=== PATIENT | female | born 1980 | race Caucasian/White ===

== ENCOUNTER 2021-02-13 12:56 | Emergency (ER) | payer OTHER, MEDICARE | END 2021-02-13 16:01 | disposition home or self-care (01) | LOC: FER 12:56 | DX: S13.4XXA Sprain of ligaments of cervical spine, initial encounter (principal); S23.3XXA Sprain of ligaments of thoracic spine, initial encounter; S33.5XXA Sprain of ligaments of lumbar spine, initial encounter; S43.402A Unspecified sprain of left shoulder joint, initial encounter; V49.40XA Driver injured in collision with unspecified motor vehicles in traffic accident, initial encounter; Y93.89 Activity, other specified | CPT/HCPCS: 72125; 72128; 72131; 73030; J1885 ==

== ENCOUNTER 2022-03-14 16:33 | Emergency (ER) | payer OTHER | END 2022-03-14 20:55 | disposition home or self-care (01) | LOC: FER 16:33 | DX: G43.909 Migraine, unspecified, not intractable, without status migrainosus (principal); F17.210 Nicotine dependence, cigarettes, uncomplicated; Z88.5 Allergy status to narcotic agent; Z28.310 Unvaccinated for COVID-19 | CPT/HCPCS: 70450; J1200; J1885; J2765 ==

== ENCOUNTER 2022-05-03 03:04 | Emergency (ER) | payer OTHER ==
[2022-05-03] MEDS ORDERED: NAPROXEN500 MG PO (03:52)
[2022-05-03] MEDS ORDERED: NORCO 5-325 TA1 EACH PO (03:52)
== END 2022-05-03 04:07 | disposition home or self-care (01) ==
LOC: FER 03:04
DX: T25.222A Burn of second degree of left foot, initial encounter (principal); F17.210 Nicotine dependence, cigarettes, uncomplicated; Z28.310 Unvaccinated for COVID-19; Z88.5 Allergy status to narcotic agent; X10.0XXA Contact with hot drinks, initial encounter; Y92.89 Other specified places as the place of occurrence of the external cause; Y99.0 Civilian activity done for income or pay
CPT/HCPCS: 99283

== ENCOUNTER 2022-05-13 02:10 | Emergency (ER) | payer OTHER ==
[~2022-05-13 02:10] MED LIST: NAPROXEN500 MG PO; NORCO 5-325 TA1 EACH PO
[2022-05-13] MEDS ORDERED: SILVADENE20 G1 TOP (03:54)
== END 2022-05-13 04:18 | disposition home or self-care (01) ==
LOC: FER 02:10
DX: T25.222D Burn of second degree of left foot, subsequent encounter (principal); F17.210 Nicotine dependence, cigarettes, uncomplicated; Z28.310 Unvaccinated for COVID-19; Z88.5 Allergy status to narcotic agent; X08.8XXD Exposure to other specified smoke, fire and flames, subsequent encounter
CPT/HCPCS: 99282